=== PATIENT | female | born 1950 | race Caucasian/White ===

== ENCOUNTER 2016-08-28 07:23 | Emergency (ER) | payer MEDICARE, OTHER ==
[~2016-08-28] VITALS: Ht 154.9 cm; Wt 82.7 kg
[2016-08-28 07:36] VITALS: BP 159/97; PULSE 74; RESP 16; TEMP 97.7; O2SAT 99
[2016-08-28] MEDS ORDERED: ROBA750T PO (07:57)
[2016-08-28] MEDS ORDERED: DICL75TA PO (07:57)
--- NOTE | 2016-08-28 08:07 | PD ---
HPI Chief Complaint: Injury Time Seen by Provider: 07:57 Travel History International Travel<30 days: No Contact w/Intl Traveler<30days: No Traveled to known affect area: No History of Present Illness HPI 66-year-old female here for evaluation of back pain. She is here on vacation from [place]. The patient reports that about 2 weeks ago she fell backwards and struck her mid back against a metal shelf. She denies any other injuries. She states she was seen in urgent care facility where they did an x-ray and was told that she has scoliosis and no disc between T11 and T12, no fractures. Pain has been constant and has been worsening, sharp, "feels as though someone is stabbing me in the back with a knife," worse with movement and palpation, radiated to her right upper abdomen yesterday evening. No lower extremity paresthesias or motor deficits. No urinary or bowel incontinence or retention. History of cholecystectomy. PFSH Past Medical History Medical other: Yes (HX BULGING DISC) Influenza Vaccination: No ?: Not Social History Alcohol Use: No Tobacco Use: No Substance Use: No Allergies-Medications (Allergen,Severity, Reaction): Coded Allergies: Tetracyclines (Verified Allergy, Unknown, 08/28/16) Reported Meds & Prescriptions Reported Meds & Active Scripts Active Reported Robaxin (Methocarbamol) 750 Mg Tab 750 Mg PO QID Diclofenac Sodium DR (Diclofenac Sodium) 75 Mg Tabdr 75 Mg PO BID Review of Systems Except as stated in HPI: all other systems reviewed are Neg Physical Exam Narrative GENERAL: Well-developed, well-nourished, comfortable, no apparent distress. SKIN: Focused skin assessment warm/dry. No lacerations, abrasions, or ecchymosis. HEAD: Atraumatic. Normocephalic. EYES: Pupils equal and round. No scleral icterus. No injection or drainage. ENT: Mucous membranes pink and moist. NECK: Trachea midline. No JVD. CARDIOVASCULAR: Regular rate and rhythm. Bilateral dorsalis pedis pulses are brisk and equal. RESPIRATORY: No accessory muscle use. Clear to auscultation. Breath sounds equal bilaterally. GASTROINTESTINAL: Abdomen soft, non-tender, nondistended. MUSCULOSKELETAL: No obvious deformities. No clubbing. No cyanosis. No edema. Mild lower thoracic/upper lumbar spine midline tenderness without step-off. No cervical spine step-off or tenderness. Normal muscle strength in all 4 extremities. NEUROLOGICAL: Awake and alert. No obvious cranial nerve deficits. Motor grossly within normal limits. Normal speech. Brisk patellar tendon reflexes bilaterally. Great toe extension present bilaterally. PSYCHIATRIC: Appropriate mood and affect; insight and judgment normal. Data Data Last Documented VS Vital Signs Date Time Temp Pulse Resp B/P Pulse Ox O2 Delivery O2 Flow Rate FiO2 08/28/16 11:01 78 16 177/90 98 08/28/16 08:23 Room Air 08/28/16 07:[address] Thor Spine W/O Contrast (08/28/16 ) Ct Lumb Spine W/O Contrast (08/28/16 ) Cta Thor Abd Aorta W Iv C W3d (08/28/16 ) Complete Blood Count With Diff (08/28/16 08:09) Comprehensive Metabolic Panel (08/28/16 08:09) Lipase (08/28/16 08:09) Prothrombin Time / Inr (Pt) (08/28/16 08:09) Act Partial Throm Time (Ptt) (08/28/16 08:09) Urinalysis - C+S If Indicated (08/28/16 08:09) Iv Access Insert/Monitor (08/28/16 08:09) Ecg Monitoring (08/28/16 08:09) Oximetry (08/28/16 08:09) Sodium Chloride 0.9% Flush (Ns Flush) (08/28/16 08:15) Morphine Inj (Morphine Inj) (08/28/16 08:30) Urine Culture (08/28/16 08:15) Morphine Inj (Morphine Inj) (08/28/16 10:45) Iohexol 350 Inj (Omnipaque 350 Inj) (08/28/16 10:41) Labs Laboratory Tests Test 08/28/16 08/28/16 08:15 08:20 Urine Collection Type CLEAN CATCH Urine Color YELLOW Urine Turbidity CLEAR Urine pH 5.5 Urine Specific [place] 1.024 Urine Protein NEG mg/dL Urine Glucose (UA) NEG mg/dL Urine Ketones TRACE mg/dL Urine Occult Blood TRACE Urine Nitrite NEG Urine Bilirubin NEG Urine Leukocyte Esterase SMALL Urine RBC 0-3 /hpf Urine WBC 6-8 /hpf Urine Squamous Epithelial 6-8 /hpf Cells Urine Bacteria MOD /hpf Microscopic Urinalysis Comment CULTURE INDICATED White Blood Count 6.9 TH/MM3 Red Blood Count 4.91 MIL/MM3 Hemoglobin 14.8 GM/DL Hematocrit 45.3 % Mean Corpuscular Volume 92.3 FL Mean Corpuscular Hemoglobin 30.2 PG Mean Corpuscular Hemoglobin 32.7 % Concent Red Cell Distribution Width 13.0 % Platelet Count 219 TH/MM3 Mean Platelet Volume 8.2 FL Neutrophils (%) (Auto) 59.2 % Lymphocytes (%) (Auto) 31.2 % Monocytes (%) (Auto) 5.6 % Eosinophils (%) (Auto) 2.0 % Basophils (%) (Auto) 2.0 % Neutrophils # (Auto) 4.1 TH/MM3 Lymphocytes # (Auto) 2.2 TH/MM3 Monocytes # (Auto) 0.4 TH/MM3 Eosinophils # (Auto) 0.1 TH/MM3 Basophils # (Auto) 0.1 TH/MM3 CBC Comment DIFF FINAL Differential Comment Prothrombin Time 10.0 SEC Prothromb Time International 0.9 RATIO Ratio Activated Partial 26.1 SEC Thromboplast Time Sodium Level 140 MEQ/L Potassium Level 3.8 MEQ/L Chloride Level 103 MEQ/L Carbon Dioxide Level 29.5 MEQ/L Anion Gap 8 MEQ/L Blood Urea Nitrogen 21 MG/DL Creatinine 0.79 MG/DL Estimat Glomerular Filtration 73 ML/MIN Rate Random Glucose 104 MG/DL Calcium Level 9.2 MG/DL Total Bilirubin 0.6 MG/DL Aspartate Amino Transf 18 U/L (AST/SGOT) Alanine Aminotransferase 22 U/L (ALT/SGPT) Alkaline Phosphatase 75 U/L Total Protein 7.9 GM/DL Albumin 4.1 GM/DL Lipase 153 U/L [facility] Medical Decision Making Medical Screen Exam Complete: Yes Emergency Medical Condition: Yes Differential Diagnosis Vertebral fracture, contusion, dissection, pancreatitis, ureterolithiasis, pyelonephritis Narrative Course Vital signs show heart rate 74, blood pressure 159/97, pulse ox 99% on room air , oral temp of 97.7F. CBC is unremarkable. CMP is unremarkable. Lipase is 153. UA shows trace ketones, trace occult blood, small leukocyte esterase, 6-8 WBCs, 6-8 epithelial cells, moderate bacteria, culture indicated. CT thoracic spine: CONCLUSION: 1. Fracture right 10th rib medially. 2. No thoracic spine fracture. CT lumbar spine: CONCLUSION: 1. Minimal retrolisthesis L2 on L3 with mild broad-based disc bulge but no canal stenosis. 2. Minimal anterolisthesis L4 on L5 with mild broad-based disc bulge but no canal stenosis. 3. 8mm left lower lobe nodule. Followup CT chest in 3 months recommended for stability. CT thoracic and abdominal aorta: CONCLUSION: 1. No thoracic aortic aneurysm or dissection. 2. Right 10th rib fracture. 3. Left lower lobe 8mm pulmonary nodule. Followup CT chest on a non-emergent basis in 3 months. Patient was made aware of all findings and was provided a copy of the CT reports. She is stable for discharge home with outpatient follow-up with her primary care physician this week when she returns to [place]. I will give her prescription for narcotic pain medication for her 10th rib fracture. She was informed on when to return to the emergency department pitcher verbalizes understanding and agreement with plan. Diagnosis Primary Impression: Right rib fracture Qualified Code: S22.31XA - Closed fracture of one rib of right side, initial encounter Additional Impression: Pulmonary nodule Referrals: Primary Care Physician 1 week Additional Instructions: Follow-up with your primary care physician as soon as you return to [place]. Return to the emergency department for worsening symptoms or any other concerns as discussed. Scripts Cyclobenzaprine (Flexeril)10 Mg Tab10 Mg PO TID #30 TAB Ref 0 Prov:Ko Correia MD 08/28/16 Oxycodone-Acetaminophen (Percocet)10-325 mg Tab1 Tab PO Q6H PRN (PAIN) #20 TAB Ref 0 Prov:Ko Correia MD 08/28/16 Disposition: 01 DISCHARGE HOME Condition: Stable Ko Correia MD August 28, 2016 08:07
[2016-08-28] MEDS ORDERED: SODIUM CHLORIDE 0.9% FLUSH 10 ML FLUSH IV FLUSH PRN (08:15)
[2016-08-28 08:23] VITALS: O2SAT 99
[2016-08-28] MEDS ORDERED: MORPHINE SULFATE 4 MG/ML INJ IV PUSH ONE (08:30)
[2016-08-28 08:31] LABS: AUTOMATED NEUTROPHIL # 4.1 TH/MM3 (1.8-7.7); BASOPHIL # 0.1 TH/MM3 (0-0.2); EOSINOPHIL # 0.1 TH/MM3 (0-0.4); HEMATOCRIT 45.3 % (35.0-46.0); HEMO FLAGS DIFF FINAL; LYMPH % 31.2 % (9.0-44.0); LYMPHOCYTE # 2.2 TH/MM3 (1.0-4.8); MEAN CELL VOLUME 92.3 FL (80.0-100.0); MEAN CORPUSCULAR HEMOGLOBIN 30.2 PG (27.0-34.0); MEAN CORPUSCULAR HGB CONC 32.7 % (32.0-36.0); MONO % 5.6 % (0.0-8.0); NEUT % 59.2 % (16.0-70.0); PLATELET COUNT 219 TH/MM3 (150-450); RED BLOOD COUNT 4.91 MIL/MM3 (4.00-5.30); WHITE BLOOD COUNT 6.9 TH/MM3 (4.0-11.0)
[2016-08-28 08:33] LABS: BLOOD, URINE TRACE (NEG); GLUCOSE,URINE NEG (NEG); KETONE, URINE TRACE mg/dL (NEG); NITRITE,URINE NEG (NEG); PH, URINE 5.5 (5.0-8.5)
[2016-08-28 08:34] LABS: METHOD OF COLLECTION CLEAN CATCH; URINE COLOR YELLOW (YELLW/STRAW)
[2016-08-28 08:37] LABS: BACTERIA, URINE MOD /hpf; COMMENT (UR) CULTURE INDICATED; CULTURE IF INDICATED CULTURE INDICATED; RBC, URINE 0-3 /hpf (0-3)
[2016-08-28 08:37] LABS: CHLORIDE 103 MEQ/L (98-107); POTASSIUM 3.8 MEQ/L (3.5-5.1); SODIUM (NA) 140 MEQ/L (136-145)
[2016-08-28 08:41] LABS: ANION GAP 8 MEQ/L (5-15); BICARBONATE 29.5 MEQ/L (21.0-32.0); BLOOD UREA NITROGEN 21 MG/DL (7-18)
[2016-08-28 08:42] LABS: APTT (PATIENT) 26.1 SEC (24.3-30.1); INTERNATIONAL NORMALIZED RATIO 0.9 RATIO
[2016-08-28 08:44] LABS: ALT (GPT) 22 U/L (10-53); AST (GOT) 18 U/L (15-37); GLOMERULAR FILTRATION RATE 73 ML/MIN (>89)
[2016-08-28 08:45] LABS: TOTAL BILIRUBIN ADULT 0.6 MG/DL (0.2-1.0)
[2016-08-28 08:46] LABS: ALKALINE PHOSPHATASE 75 U/L (45-117)
--- NOTE | 2016-08-28 10:27 | RADHPO ---
EXAM DATE/TIME: 08/28/2016 09:45 [facility] COMPARISON: No previous studies available for comparison. INDICATIONS : Pain after fall one week ago. RADIATION DOSE: ; Reconstructed from previous dataset MEDICAL HISTORY : Buldging disk. SURGICAL HISTORY : None. ENCOUNTER: Initial ACUITY: 1 week PAIN SCALE: 5/10 LOCATION: Bilateral back TECHNIQUE: Volumetric scanning of the lumbar spine was performed. Multiplanar reconstructions in the sagittal, coronal and oblique axial planes were performed. Using automated exposure control and adjustment of the mA and/or kV according to patient size, radiation dose was kept as low as reasonably achievable t o obtain optimal diagnostic quality images. FINDINGS: VERTEBRAE: Normal vertebral body height. ALIGNMENT: Minimal retrolisthesis L2 on L3 and minimal anterolisthesis L4 and L5. Prominent degenerative changes at L2-3 and L4-5 levels. No fracture seen. Left lower lobe nodule measures 8 mm. Levo scoliosis of u pper lumbar spine and dextroscoliosis lower lumbar spine T12-L1: The thecal sac has a normal diameter. No evidence of disc bulge or protrusion. The neural foramina are patent bilaterally. L1-L2: The thecal sac has a normal diameter. No evidence of disc bulge or protrusion. The neural foramina are patent bilaterally. L2-L3: Minimal retrolisthesis. Mild broad-based bulge abuts ventral thecal sac without canal stenosis. The n eural foramina are patent bilaterally. L3-L4: The thecal sac has a normal diameter. No evidence of disc bulge or protrusion. The neural foramina are patent bilaterally. Mild facet arthropathy. L4-L5: Minimal anterolisthesis. Mild broad-based bulge abuts ventral thecal sac without canal stenosis. The neural foramina are patent bilaterally. Mild facet arthropathy. L5-S1: The thecal sac has a normal diameter. No evidence of disc bulge or protrusion. The neural foramina are patent bilaterally. Mild facet arthropathy. CONCLUSION: 1. Minimal retrolisthesis L2 on L3 with mild broad-based disc bulge but no canal stenosis. 2. Minimal anterolisthesis L4 on L5 with mild broad-based disc bulge but no canal stenosis. 3. 8mm left lower lobe nodule. Followup CT chest in 3 months recommended for stability. Armando Oleary MD on August 28, 2016 at 10:21 Board Certified Radiologist. This report was verified electronically.
--- NOTE | 2016-08-28 10:30 | RADHPO ---
EXAM DATE/TIME: 08/28/2016 09:45 [place] Corrected on: September 27, 2016; added Radiation Dose [facility] COMPARISON: No previous studies available for comparison. INDICATIONS : Pain after fall last week. RADIATION DOSE: Reconstructed for previous dataset MEDICAL HISTORY : Buldging disk. SURGICAL HISTORY : None. ENCOUNTER: Initial ACUITY: 1 week PAIN SCALE: 6/10 LOCATION: Bilateral spine TECHNIQUE: Volumetric scanning of the thoracic spine was performed. Multiplanar reconstructions in the sagittal , coronal and oblique axial planes were performed. Using automated exposure control and adjustment o f the mA and/or kV according to patient size, radiation dose was kept as low as reasonably achievable to obtain optimal diagnostic quality images. FINDINGS: The vertebral bodies of the thoracic spine are in normal alignment without evidence of subluxation. Vertebral body height is maintained. No fractures are seen of the thoracic spine. There is a fractur e of the right 10th rib medially. T1-T2: Normal. T2-T3: The thecal sac has a normal diameter. No evidence of disc bulge or protrusion. T3-T4: The thecal sac has a normal diameter. No evidence of disc bulge or protrusion. T4-T5: The thecal sac has a normal diameter. No evidence of disc bulge or protrusion. T5-T6: The thecal sac has a normal diameter. No evidence of disc bulge or protrusion. T6-T7: The thecal sac has a normal diameter. No evidence of disc bulge or protrusion. T7-T8: The thecal sac has a normal diameter. No evidence of disc bulge or protrusion. T8-T9: The thecal sac has a normal diameter. No evidence of disc bulge or protrusion. T9-T10: The thecal sac has a normal diameter. No evidence of disc bulge or protrusion. T10-T11: The thecal sac has a normal diameter. No evidence of disc bulge or protrusion. T11-T12: The thecal sac has a normal diameter. No evidence of disc bulge or protrusion. T12-L1: The thecal sac has a normal diameter. No evidence of disc bulge or protrusion. CONCLUSION: 1. Fracture right 10th rib medially. 2. No thoracic spine fracture. Armando Oleary MD on August 28, 2016 at 10:25 Board Certified Radiologist. This report was verified electronically. on September 27, 2016 at 10:57 Board Certified Radiologist. This report was verified electronically.
[2016-08-28] MEDS ORDERED: IOHEXOL 350 MG/ML 10 ML VIAL (for RAD DIAG) IV ONE (10:41)
[2016-08-28] MEDS ORDERED: MORPHINE SULFATE 8 MG/ML INJ IV PUSH ONE (10:45)
[2016-08-28 11:01] VITALS: BP 177/90; PULSE 78; RESP 16; O2SAT 98
--- NOTE | 2016-08-28 11:04 | RADHPO ---
EXAM DATE/TIME: 08/28/2016 09:45 [facility] COMPARISON: No previous studies available for comparison. INDICATIONS : Pain after fall last week. IV CONTRAST: 100 cc Omnipaque 350 (iohexol) IV RADIATION DOSE: 19.70 CTDIvol (mGy) MEDICAL HISTORY : buldging disk. SURGICAL HISTORY : None. ENCOUNTER: Initial ACUITY: 1 day PAIN SCALE: 5/10 LOCATION: Bilateral back. TECHNIQUE: Volumetric scanning was performed using a multi-row detector CT scanner. The data was post processed with a variety of visualization algorithms including full volume maximum intensity projection, multi -planar sliding thin slab reformation, curved planar reformation, and surface rendering techniques. Using automated exposure control and adjustment of the mA and/or kV according to patient size, radiat ion dose was kept as low as reasonably achievable to obtain optimal diagnostic quality images. FINDINGS: LUNGS: There is no consolidation or pneumothorax. 8 mm nodule left lower lobe.. No pleural fluid is present . MEDIASTINUM: No abnormally enlarged lymph nodes by CT criteria. No axillary or hilar abnormalities are identified. ABDOMEN: The liver and spleen are free of focal defects. The gallbladder and pancreas demonstrate no abnormali ty. The adrenal glands are normal. The kidneys demonstrate no evidence of solid renal mass or hydrone phrosis. No free fluid or abdominal masses are identified. No para-aortic adenopathy is seen. There i s a fracture of the medial and posterior right 10th rib. PELVIS: No evidence of free fluid or pelvic mass. No abnormally enlarged inguinal or retroperitoneal lymph no geri are present. The bladder is unremarkable. THORACIC AORTA: The thoracic aortic root is normal with normal branching of the great vessels. There is no evidence of aneurysm or dissection. ABDOMINAL AORTA: The aorta is normal in caliber without aneurysm or dissection. The renal arteries are patent bilater ally. The proximal celiac and superior mesenteric arteries are patent and normal in diameter. PELVIC VESSELS: The internal iliac and external iliac vessels are patent without aneurysm or stenosis. CONCLUSION: 1. No thoracic aortic aneurysm or dissection. 2. Right 10th rib fracture. 3. Left lower lobe 8mm pulmonary nodule. Followup CT chest on a non-emergent basis in 3 months. 1. Armando Oleary MD on August 28, 2016 at 10:55 Board Certified Radiologist. This report was verified electronically.
[2016-08-28] MEDS ORDERED: PERC10TA27 PO (11:18)
[2016-08-28] MEDS ORDERED: CYCL1TAB29 PO (11:18)
== END 2016-08-28 11:36 | disposition home or self-care (01) ==
LOC: PHEFT 07:23
DX: S22.31XA Fracture of one rib, right side, initial encounter for closed fracture (principal); R91.1 Solitary pulmonary nodule; W18.39XA Other fall on same level, initial encounter
CPT/HCPCS: 71275; 72128; 72131; 74174; 80053; 81001; 83690; 85025; 85610; 85730; 87086; 96374; 99284; J2270; Q9967